=== PATIENT | female | born 1995 | race Caucasian/White ===

== ENCOUNTER 2017-08-22 12:48 | Emergency (ER) | payer OTHER ==
[2017-08-22 13:28] LABS: BASOPHILS % (AUTO) 0.7 %; EOSINOPHILS # (AUTO) 0.2 10^3/uL (0.0-0.7); EOSINOPHILS % (AUTO) 2.8 %; HGB - HEMOGLOBIN 15.7 g/dL (12.0-16.0); LYMPHOCYTES # (AUTO) 2.1 10^3/uL (1.5-3.5); LYMPHOCYTES % (AUTO) 30.6 %; MEAN CORPUSCULAR HEMOGLOBIN 30.1 pg (27.0-31.0); MEAN CORPUSCULAR HGB CONC 34.4 g/dL (32.0-36.0); MEAN CORPUSCULAR VOLUME 87.6 fL (81.0-99.0); MEAN PLATELET VOLUME 7.7 fL (7.9-10.8); MONOCYTES # (AUTO) 0.5 10^3/uL (0.0-1.0); MONOCYTES % (AUTO) 6.8 %; NEUTROPHILS % (AUTO) 59.1 %; PLT - PLATELET COUNT 233 10^3/uL (130-450); RED CELL DISTRIBUTION WIDTH 13.4 % (12.0-15.0); WHITE BLOOD COUNT 6.7 x10^3/uL (4.8-10.8)
[2017-08-22 13:40] LABS: ALBUMIN 4.4 g/dL (3.2-5.5); ALBUMIN/GLOBULIN RATIO 1.4 (1.0-2.2); BILIRUBIN,TOTAL 0.8 mg/dL (0.2-1.0); CALCIUM 9.4 mg/dL (8.5-10.3); TOTAL PROTEIN 7.5 g/dL (6.7-8.2)
--- NOTE | 2017-08-22 15:34 | ED Physician Documentation ---
History of Present Illness - Stated complaint Stated Complaint: LOWER AB PX - Chief complaint Chief Complaint: Abd Pain - History obtained from History obtained from: Patient - History of Present Illness Timing: Last night Pain level max: 5 Pain level now: 3 - Additonal information Additional information: States RLQ abd pain since last night. states she felt a strain in her RLQ doing lunges 5 days ago. nothing makes the pain better or worse. LMP was 3-4 days ago and was reportedly normal. Denies any possibility of . No changes in sexual partners. She has Nexplanon for control. Has irregular menses. There is a history of ovarian cyst in the family. No vaginal discharge. No itching. Review of Systems Constitutional: denies: Fever, Chills Throat: denies: Sore throat Cardiac: denies: Chest pain / pressure Respiratory: denies: Cough GI: denies: Nausea, Vomiting, Diarrhea : denies: Dysuria, Frequency, Hesitancy, Discharge, Now EGA Skin: denies: Rash Musculoskeletal: denies: Neck pain, Back pain Neurologic: denies: Focal weakness, Numbness, Headache PD PAST MEDICAL HISTORY - Past Medical History Past Medical History: No - Past Surgical History Past Surgical History: No - Present Medications Home Medications: Ambulatory Orders Medication Instructions Recorded Confirmed No Known Home Medications [No 08/22/17 08/22/17 Known Home Medications] - Allergies Allergies/Adverse Reactions: Allergies Allergy/AdvReac Type Severity Reaction Status Date / Time No Known Drug Allergies Allergy Verified 08/22/17 12:58 - Living Situation Living Arrangement: reports: At home - Social History Does the pt smoke?: Yes Does the pt have substance abuse?: No - Family History Family history: reports: Non contributory PD ED PE NORMAL - Vitals Vital signs reviewed: Yes - General General: Alert and oriented X 3 - HEENT HEENT: Moist mucous membranes - Neck Neck: Supple, no meningeal sign - Cardiac Cardiac: RRR, Strong equal pulses - Respiratory Respiratory: No respiratory distress, Clear bilaterally - Abdomen Abdomen: Soft, Non distended, Other (mild ttp R low pelvic, no peritoneal signs. no tenderness at McBurney's point.) - Female Female : Pt declined - Back Back: No CVA TTP, No spinal TTP - Derm Derm: Warm and dry - Extremities Extremities: No edema, No calf tenderness / cord - Neuro Neuro: Alert and oriented X 3 - Psych Psych: Normal mood, Normal affect Results - Vitals Vitals: Vital Signs - 24 hr 08/22/17 08/22/17 12:55 18:19 Temperature 36.6 C Heart Rate 75 65 Respiratory 18 18 Rate Blood Pressure 129/71 116/68 O2 Saturation 98 100 Oxygen O2 Source Room air - Labs Labs: Laboratory Tests 08/22/17 08/22/17 08/22/17 13:22 13:22 15:49 WBC 6.7 RBC 5.20 Hgb 15.7 Hct 45.6 MCV 87.6 MCH 30.1 MCHC 34.4 RDW 13.4 Plt Count 233 MPV 7.7 L Neut # 4.0 Lymph # 2.1 [place] # 0.5 Eos # 0.2 Baso # 0.0 Absolute Nucleated RBC 0.00 Nucleated RBC % 0.0 Sodium 135 Potassium 4.1 Chloride 102 Carbon Dioxide 26 Anion Gap 7.0 BUN 17 Creatinine 1.0 Estimated GFR (MDRD) 70 L Glucose 92 Calcium 9.4 Total Bilirubin 0.8 AST 28 ALT 19 Alkaline Phosphatase 63 Total Protein 7.5 Albumin 4.4 Globulin 3.1 Albumin/Globulin Ratio 1.4 Lipase 28 Urine Color YELLOW Urine Clarity CLEAR Urine pH 6.0 Ur Specific [place] <=1.005 Urine Protein NEGATIVE Urine Glucose (UA) NEGATIVE Urine Ketones NEGATIVE Urine Occult Blood NEGATIVE Urine Nitrite NEGATIVE Urine Bilirubin NEGATIVE Urine Urobilinogen 0.2 (NORMAL) Ur Leukocyte Esterase NEGATIVE Ur Microscopic Review NOT INDICATED Urine Culture Comments NOT INDICATED Urine HCG, Qual NEGATIVE - Rads (name of study) pelvic US Radiology: Prelim report reviewed, See rad report (normal) PD MEDICAL DECISION MAKING - ED course Complexity details: reviewed results, re-evaluated patient, considered differential, d/w patient ED course: Patient is a 22-year-old female who presents to the emergency department today with right low pelvic discomfort. This seemed to resolve in the emergency department. She is very well-appearing, nontoxic. Afebrile. No STD risk factors. No evidence of ectopic or UTI. Abdomen is soft, nontender nondistended on serial examination. Normal ultrasound. No evidence of ovarian torsion. Patient counseled regarding signs and symptoms for which I believe and urgent re-evaluation would be necessary. Patient with good understanding of and agreement to plan and is comfortable going home at this time This document was made in part using voice recognition software. While efforts are made to proofread this document, sound alike and grammatical errors may occur. No evidence of acute appendicitis. Departure - Departure Disposition: 01 Home, Self Care Clinical Impression: Pelvic pain Condition: Good Instructions: ED Pelvic Pain [facility] Follow-Up: MARY FERRARO MD [Primary Care Provider] - Within 3 Days Comments: The cause of your symptoms is unclear today. Return if you worsen or symptoms fail to improve over the next 24-48 hours. You may need a pelvic examination as well if you fail to improve. Discharge Date/Time: 08/22/17 18:26
--- NOTE | 2017-08-22 17:42 | Ultrasound Report ---
EXAM: PELVIC ULTRASOUND WITH DOPPLER EXAM DATE: 08/22/2017 05:13 PM. CLINICAL HISTORY: Right pelvic pain COMPARISON: None. TECHNIQUE: Realtime transabdominal pelvic scan performed to identify the uterus and adnexa and as an overview of other pelvic structures, followed by transvaginal scan to provide greater detail of the u terus and adnexa, with static image documentation. Additional Doppler spectral analysis performed due to pelvic pain. FINDINGS: Uterus: Anteverted position. 6.9 x 2.9 x 3.4 cm, volume 35 cc. Homogeneous myometrial echotexture. Endometrium: 2 mm. Normal. Cervix: Unremarkable. Right Ovary: 3.7 x 1.9 x 2.8 cm, volume 10.3 cc. Normal echotexture. Arterial and venous blood flow a re present. Left Ovary: 3.8 x 2.4 x 2.6 cm, volume 12.4 cc. Normal echotexture. Arterial and venous blood flow ar e present. Free Fluid: None. Other: None. IMPRESSION: 1. Normal pelvic ultrasound. 2. Arterial and venous blood flow are present in the ovaries bilaterally. [facility] Referring Provider Line: [phone] SITE ID: [id number]
--- NOTE | 2017-08-22 17:42 | Ultrasound Preliminary Report ---
Exam: US PELVIC W/TRANSVAG+DOPPLER LTD IMPRESSION: 1. Normal pelvic ultrasound. 2. Arterial and venous blood flow are present in the ovaries bilaterally. [facility] SITE ID: [id number]
[2017-08-22 18:18] LABS: BILIRUBIN,URINE NEGATIVE (NEGATIVE); GLUCOSE, URINE (UA) NEGATIVE (NEGATIVE); KETONES,URINE (UA) NEGATIVE (NEGATIVE); LEUKOCYTE ESTERASE, URINE NEGATIVE (NEGATIVE); NITRITE,URINE NEGATIVE (NEGATIVE); OCCULT BLOOD,URINE NEGATIVE (NEGATIVE); PROTEIN,URINE NEGATIVE (NEGATIVE); UROBILINOGEN,URINE 0.2 (NORMAL) E.U./dL (NORMAL)
[2017-08-22 18:19] LABS: CLARITY,URINE CLEAR (CLEAR)
[2017-08-22 18:20] VITALS: BP 116/68
[2017-08-22 18:21] LABS: HCG UR QUAL NEGATIVE
== END 2017-08-22 18:26 | disposition home or self-care (01) ==
LOC: ED 12:48
DX: R10.2 Pelvic and perineal pain (principal)
CPT/HCPCS: 36415; 76830; 76856; 80053; 81001; 81003; 81025; 83690; 85025; 87086; 93976; 99283